=== PATIENT | female | born 1980 | race Caucasian/White ===

== ENCOUNTER 2022-08-10 23:13 | Emergency (ER) | payer SELFPAY ==
[2022-08-10] MEDS ORDERED: Sodium Chloride 0.9% 1,000 ML ONE (23:47)
[2022-08-10] MEDS ORDERED: Ketorolac Tromethamine 30 MG/ML VIAL ONE (23:53)
[2022-08-10 23:57] LABS: #Eosinphils 0.1 thou/uL (0.0-0.7); #Monocytes 1.1 thou/uL (0.11-0.59); %Basophils 0.3 % (0.0-1.0); %Eosinophils 0.3 % (0.0-10.0); %Lymphocytes 13.4 % (21.0-51.0); %Monocytes 7.1 % (0.0-10.0); %Neutrophils 78.9 % (42.0-75.0); Hemoglobin 14.7 g/dL (12.0-16.0); Mean Corpuscular HGB CONC 34.8 g/dL (32.0-36.0); Mean Corpuscular Hemoglobin 33.2 pg (27.0-31.0); Mean Corpuscular Volume 95.2 fl (78.0-98.0); Platelet Count 263 10x3/uL (130-400); RBC Distribution Width 11.6 % (11.5-14.5); Red Blood Cell (RBC) Count 4.43 mill/uL (4.20-5.40); White Blood Cell (WBC) Count 15.3 10x3/uL (4.8-10.8)
[2022-08-11 00:17] LABS: ALT (SGPT) 27 U/L (8-55); AST (SGOT) 19 U/L (5-34); Albumin 4.4 g/dL (3.5-5.0); Alkaline Phosphatase 56 U/L (40-110); Anion Gap 14 mmol/L (10-20); BUN (Urea Nitrogen) 6 mg/dL (7.0-18.7); Bilirubin, Total 0.3 mg/dL (0.2-1.2); Calc. Creatinine Clearance 0 mL/min (70-130); Carbon Dioxide 22 mmol/L (22-29); Chloride 105 mmol/L (98-107); Estimated GFR 94; Globulin 3.5 g/dL (2.4-3.5); Glucose 107 mg/dL (70-105); Potassium 3.4 mmol/L (3.5-5.1); Protein, Total 7.9 g/dL (6.0-8.3); Sodium 138 mmol/L (136-145)
[2022-08-11 00:18] LABS: Bilirubin Negative (Negative); Blood, Urine Moderate (Negative); Clarity Slightly Cloudy (Clear); Glucose, Urine (Dipstick) Negative (Negative); Ketone, Urine Negative (Negative); Leukocyte Large (Negative); Nitrite Negative (Negative); Protein, Urine (Dipstick) 100 mg/dL (Neg-Trace); Specific Gravity, Urine 1.015 (1.005-1.030); Urobilinogen 0.2 mg/dL (Less than 2)
[2022-08-11 00:20] LABS: Bacteria/HPF 2+ HPF (None Seen); RBC/HPF 0-3 HPF (0-3); Transitional Epithelial 0-3 HPF (None Seen); WBC/HPF Greater Than 50 HPF (0-3)
[2022-08-11 00:21] LABS: Pregnancy Test - Urine (BHCG) Negative (Negative); Pregu Control Background? CLEAR/WHITE (CLR/WHITE); Pregu Control Bar Appear? YES (CONTROL BAR); Specific Gravity 1.004 (1.002-1.036)
[2022-08-11] MEDS ORDERED: Sodium Chloride 0.9% 1,000 ML ONE (00:47)
[2022-08-11] MEDS ORDERED: Sodium Chloride 0.9% 100 ML ONE (00:47)
[2022-08-11] MEDS ORDERED: cefTRIAXone (ROCEPHIN) 1 GM VIAL ONE (00:47)
== END 2022-08-11 01:56 | disposition home or self-care (01) ==
LOC: MADERS 23:13
DX: N10 Acute pyelonephritis (principal); D72.829 Elevated white blood cell count, unspecified; Z87.891 Personal history of nicotine dependence
CPT/HCPCS: 74176; 80053; 81003; 81015; 81025; 83605; 85025; 87040; 87077; 87086; 87186; 96365; 96375; J0696; J1885; J3490; J7050

== ENCOUNTER 2022-08-13 20:37 | Emergency (ER) | payer SELFPAY ==
[2022-08-13] MEDS ORDERED: diphenhydrAMINE 25 MG CAP ONE (21:45)
[2022-08-13] MEDS ORDERED: Nitrofurantoin Monohyd/M-Cryst 100 MG CAP ONE (21:45)
[2022-08-13] MEDS ORDERED: Promethazine 25 MG TAB ONE (21:45)
== END 2022-08-13 21:50 | disposition home or self-care (01) ==
LOC: MADERS 20:37
DX: R51.9 Headache, unspecified (principal); T78.40XA Allergy, unspecified, initial encounter; N39.0 Urinary tract infection, site not specified; Z87.891 Personal history of nicotine dependence
CPT/HCPCS: 99283; Q0169